=== PATIENT | male | born 1975 | race African-American/Black ===

== ENCOUNTER 2021-02-28 05:57 | Outpatient (CLI) | payer OTHER ==
[~2021-02-28] VITALS: Ht 172.7 cm; Wt 120.5 kg
[2021-02-28] MEDS ORDERED: AMLO-251 PO (12:19)
[2021-02-28] MEDS ORDERED: LORA10TA76 PO (12:19)
[2021-02-28] MEDS ORDERED: HYDR12.56 PO (12:19)
[2021-02-28] MEDS ORDERED: OMEG1CAP58 PO (12:19)
[2021-02-28] MEDS ORDERED: MULT-974 PO (12:19)
== END 2021-03-01 10:00 | disposition home or self-care (01) ==
LOC: PREOP 05:57
PROVIDERS: ATTEND Specialist
DX: Z01.818 Encounter for other preprocedural examination (principal)

== ENCOUNTER 2021-03-02 08:41 | Day surgery (SDC) | payer OTHER ==
[~2021-03-02] VITALS: Ht 172.7 cm; Wt 120.5 kg
[~2021-03-02 08:41] MED LIST: AMLO-251 PO; HYDR12.56 PO; LORA10TA76 PO; MULT-974 PO; OMEG1CAP58 PO
[2021-03-02 08:58] VITALS: BP 141/88
[2021-03-02] MEDS ORDERED: TETRACAINE 0.5% OPHTH SOLN 4 ML BTL (SINGLE DOSE ONLY) OU ONE (09:00)
[2021-03-02] MEDS ORDERED: TIMOLOL MALEATE 0.5% 5 ML (TIMOPTIC) BTL OU ONE (09:00)
[2021-03-02] MEDS ORDERED: PILOCARPINE 4% OPHTH SOLN (ISOPTO CARPINE) 15 ML BTL OP ONE (09:00)
--- NOTE | 2021-03-02 10:00 | Ophthalmologist Pre-Op Note ---
Pre-Operative Progress Note H&P Reviewed The H&P was reviewed, patient examined and no changes noted. Date H&P Reviewed: March 02, 2021 Time H&P Reviewed: 09:27 Pre-Op Dx Narrow angle glaucoma, Right Eye VALERIE SEGURA MD March 02, 2021 10:00
[2021-03-02 10:13] VITALS: BP 141/88
--- NOTE | 2021-03-02 10:43 | Ophthalmology Operative Report ---
YAG Iridotomy PREOPERATIVE DIAGNOSIS: Narrow angle glaucoma, Right Eye POSTOPERATIVE DIAGNOSIS: Narrow angle glaucoma, Right Eye PROCEDURE: YAG Iridotomy right eye SURGEON: Flako Segura ANESTHESIA: Topical anesthesia COMPLICATIONS: None ESTIMATED BLOOD LOSS: Minimal DESCRIPTION OF PROCEDURE: After proper informed consent was obtained, that patients right eye received one drop of tetracaine and one drop of pilocarpine 4%. The patient received 1 drop of timolol 0.5% five minutes after the pilocarpine. The iridotomy lens was placed on the patients eye. The patient was moved to the YAG laser and using a power of [7.0 ] millijoules [7] bursts were used to fashion a patent iridotomy. The patient tolerated the procedure well without complications and the patients pressure was [15 ] shortly after the laser FLAKO SEGURA MD March 02, 2021 10:43
== END 2021-03-02 10:13 | disposition home or self-care (01) ==
LOC: SDC 08:41
PROVIDERS: ATTEND Specialist
DX: H40.20X0 Unspecified primary angle-closure glaucoma, stage unspecified (principal); Z83.3 Family history of diabetes mellitus; Z79.899 Other long term (current) drug therapy

== ENCOUNTER 2021-03-09 06:03 | Outpatient (CLI) | payer OTHER | END 2021-03-13 11:27 | disposition home or self-care (01) | LOC: PREOP 06:03 | PROVIDERS: ATTEND Specialist | DX: Z01.818 Encounter for other preprocedural examination (principal) ==

== ENCOUNTER 2021-03-16 08:34 | Day surgery (SDC) | payer OTHER ==
[~2021-03-16] VITALS: Ht 177.8 cm; Wt 120.5 kg
[2021-03-16] MEDS ORDERED: TIMOLOL MALEATE 0.5% 5 ML (TIMOPTIC) BTL OU ONE (09:00)
[2021-03-16] MEDS ORDERED: PILOCARPINE 4% OPHTH SOLN (ISOPTO CARPINE) 15 ML BTL OP ONE (09:00)
[2021-03-16] MEDS ORDERED: TETRACAINE 0.5% OPHTH SOLN 4 ML BTL (SINGLE DOSE ONLY) OU ONE (09:00)
[2021-03-16 09:10] VITALS: BP 136/85
--- NOTE | 2021-03-16 10:31 | Ophthalmologist Pre-Op Note ---
Pre-Operative Progress Note H&P Reviewed The H&P was reviewed, patient examined and no changes noted. Date H&P Reviewed: Mar 16, 2021 Time H&P Reviewed: 09:22 Pre-Op Dx PREOPERATIVE DIAGNOSIS: Narrow angle glaucoma, Left Eye POSTOPERATIVE DIAGNOSIS: Narrow angle glaucoma, Left Eye PROCEDURE: YAG Iridotomy left eye SURGEON: Flako Segura ANESTHESIA: Topical anesthesia COMPLICATIONS: None ESTIMATED BLOOD LOSS: Minimal DESCRIPTION OF PROCEDURE: After proper informed consent was obtained, that patients left eye received one drop of tetracaine and one drop of pilocarpine 4%. The patient received 1 drop of timolol 0.5% five minutes after the pilocarpine. The iridotomy lens was placed on the patients eye. After this the patient was moved to the YAG laser and using a power of [7.0 ] millijoules [ 6] bursts were used to fashion a patent iridotomy. The patient tolerated the procedure well without complications and the patients pressure was [ ] shortly after the laser FLAKO SEGURA MD Mar 16, 2021 10:31
== END 2021-03-16 09:44 ==
LOC: SDC 08:34
PROVIDERS: ATTEND Specialist
DX: H40.20X0 Unspecified primary angle-closure glaucoma, stage unspecified (principal); R03.0 Elevated blood-pressure reading, without diagnosis of hypertension; Z79.899 Other long term (current) drug therapy